=== PATIENT | female | born 1955 | race Caucasian/White ===

== ENCOUNTER 2021-12-27 15:53 | Emergency (ER) | payer MEDICARE, OTHER ==
[~2021-12-27] VITALS: Ht 160 cm; Wt 54.4 kg
[~2021-12-27 15:53] MED LIST: ROBAXIN750 MG PO; Z MIRAPEX PO; Z.0.DIOVAN160 MG PO; Z.0.DIOVAN40 MG PO; Z.0.NORCO 5-325 TA1 PO
[2021-12-27] MEDS ORDERED: HYDROCODONE/APAP 5MG-325MG TAB PO PRN (16:30)
[2021-12-27] MEDS ORDERED: ANAPROX DS550 MG PO (17:11)
== END 2021-12-27 17:45 | disposition home or self-care (01) ==
LOC: ER 16:11
DX: M13.832 Other specified arthritis, left wrist (principal); G56.02 Carpal tunnel syndrome, left upper limb; I10 Essential (primary) hypertension; E78.5 Hyperlipidemia, unspecified; Z85.89 Personal history of malignant neoplasm of other organs and systems
CPT/HCPCS: 99283